=== PATIENT | male | born 1985 | race Two or more races ===

== ENCOUNTER 2018-02-02 15:57 | Emergency (ER) | payer MEDICAID ==
[~2018-02-02] VITALS: Ht 185.4 cm; Wt 79.1 kg
[~2018-02-02 15:57] MED LIST: ACET1TAB12 PO; ALPR-385 PO; ARIP5TAB4 PO; EMTR1TAB6 PO; FLUV50TA3 PO; HYDR-565 PO; RALT400T PO
[2018-02-02 17:55] LABS: BASOPHILS % (AUTO) 0.3 % (0-1); EOSINOPHILS # (AUTO) 0.1 X10'3 (0-0.9); EOSINOPHILS % (AUTO) 1.5 % (0-6); HEMATOCRIT 40.6 % (42.0-52.0); LYMPHOCYTES # (AUTO) 2.4 X10'3 (1.1-4.8); LYMPHOCYTES % (AUTO) 36.6 % (21-51); MEAN CORPUSCULAR HEMOGLOBIN 33.1 PG (27.0-31.0); MEAN CORPUSCULAR HGB CONC 34.6 % (33.0-36.5); MEAN CORPUSCULAR VOLUME 95.8 FL (78-98); MONOCYTES # (AUTO) 0.7 X10'3 (0-0.9); MONOCYTES % (AUTO) 10.2 % (2-12); NEUTROPHILS # (AUTO) 3.4 X10'3 (1.8-7.7); NEUTROPHILS % (AUTO) 51.4 % (42-75); PLATELET COUNT 258 X10'3 (140-440); RED BLOOD COUNT 4.24 X10'6 (4.70-6.10); RED CELL DISTRIBUTION WIDTH 13.2 % (11.5-14.5); WHITE BLOOD COUNT 6.6 X10'3 (4.5-11.0)
[2018-02-02 18:12] LABS: ALANINE AMINOTRANSFERASE 63 U/L (12-78); ALBUMIN 3.7 G/DL (3.4-5.0); ALBUMIN/GLOBULIN RATIO 0.9 (1.1-1.5); ALKALINE PHOSPHATASE 65 IU/L (46-116); ANION GAP 7 (8-16); ASPARTATE AMINO TRANSFERASE 30 U/L (10-37); BILIRUBIN,TOTAL 0.9 MG/DL (0.1-1.0); BLOOD UREA NITROGEN 16 MG/DL (7-18); BUN/CREATININE RATIO 18.6 (5.4-32.0); CHLORIDE 102 MMOL/L (99-107); CREATININE 0.86 MG/DL (0.60-1.10); ETHANOL < 0.010 GM/DL (0.0-0.010); GLUCOSE 78 MG/DL (70-104); POTASSIUM 3.5 MMOL/L (3.5-5.1); SODIUM 139 MMOL/L (135-145); TOTAL CARBON DIOXIDE 29.9 MMOL/L (24-32); TOTAL PROTEIN 7.6 G/DL (6.4-8.2); eGFR > 90 ML/MIN
[2018-02-02 18:35] LABS: URINE AMPHETAMINE SCREEN POSITIVE (Neg); URINE BARBITUATE SCREEN NEGATIVE (Neg); URINE BENZODIAZEPINES SCREEN NEGATIVE (Neg); URINE CANNABINOID SCREEN POSITIVE (Neg); URINE COCAINE SCREEN NEGATIVE (Neg); URINE METHADONE SCREEN NEGATIVE (Neg); URINE OPIATE SCREEN POSITIVE (Neg); URINE PHENCYCLIDINE SCREEN NEGATIVE (Neg)
[2018-02-02] MEDS ORDERED: ZOLP6.252 PO (22:29)
[2018-02-02] MEDS ORDERED: TRAZ-146 PO (22:29)
[2018-02-02] MEDS ORDERED: GABA100C PO (22:30)
[2018-02-03 06:09] VITALS: BP 112/61
== END 2018-02-03 09:23 ==
LOC: ER 15:58
DX: F32.9 Major depressive disorder, single episode, unspecified (principal); F41.9 Anxiety disorder, unspecified; F15.10 Other stimulant abuse, uncomplicated; F12.90 Cannabis use, unspecified, uncomplicated; G89.29 Other chronic pain; Z88.1 Allergy status to other antibiotic agents; Z88.6 Allergy status to analgesic agent; Z79.899 Other long term (current) drug therapy
CPT/HCPCS: 36415; 80053; 80305; 80320; 85025; 99285

== ENCOUNTER 2018-02-09 07:00 | Emergency (ER) | payer MEDICAID ==
[~2018-02-09] VITALS: Ht 653.8 cm; Wt 78.0 kg
[~2018-02-09 07:00] MED LIST changes: -ACET1TAB12 PO; -EMTR1TAB6 PO; +GABA100C PO; -HYDR-565 PO; -RALT400T PO; +TRAZ-146 PO; +ZOLP6.252 PO
[2018-02-09 07:13] VITALS: BP 104/66
[2018-02-09] MEDS ORDERED: ONDA8TAB9 PO (09:06)
[2018-02-09] MEDS ORDERED: HYDR-3965 PO (09:09)
== END 2018-02-09 09:24 | disposition home or self-care (01) ==
LOC: ER 07:00
DX: S00.33XA Contusion of nose, initial encounter (principal); J34.2 Deviated nasal septum; G89.29 Other chronic pain; F31.9 Bipolar disorder, unspecified; F12.90 Cannabis use, unspecified, uncomplicated; R11.10 Vomiting, unspecified; F15.90 Other stimulant use, unspecified, uncomplicated; Z88.8 Allergy status to other drugs, medicaments and biological substances; Z79.2 Long term (current) use of antibiotics; Z79.899 Other long term (current) drug therapy; Z88.5 Allergy status to narcotic agent; Z21 Asymptomatic human immunodeficiency virus [HIV] infection status; Y04.8XXA Assault by other bodily force, initial encounter; Y93.89 Activity, other specified; Y92.89 Other specified places as the place of occurrence of the external cause; Y99.8 Other external cause status
CPT/HCPCS: 70450; 70486; 99284

== ENCOUNTER 2018-04-02 01:10 | Emergency (ER) | payer MEDICAID ==
[~2018-04-02] VITALS: Ht 185.4 cm; Wt 63.9 kg
[~2018-04-02 01:10] MED LIST changes: +ONDA8TAB9 PO; -TRAZ-146 PO; +TRAZ-219 PO
[2018-04-02] MEDS ORDERED: ARIP5TAB49 (03:32)
[2018-04-02 04:02] LABS: BASOPHILS % (AUTO) 0.3 % (0-1); EOSINOPHILS # (AUTO) 0.1 X10'3 (0-0.9); EOSINOPHILS % (AUTO) 1.6 % (0-6); HEMATOCRIT 37.5 % (42.0-52.0); HEMOGLOBIN 12.9 g/dl (14.0-17.9); LYMPHOCYTES % (AUTO) 21.6 % (21-51); MEAN CORPUSCULAR HGB CONC 34.3 % (33.0-36.5); MEAN CORPUSCULAR VOLUME 93.4 FL (78-98); MEAN PLATELET VOLUME 7.1 FL (7.4-10.4); MONOCYTES # (AUTO) 0.6 X10'3 (0-0.9); MONOCYTES % (AUTO) 6.7 % (2-12); NEUTROPHILS # (AUTO) 6.5 X10'3 (1.8-7.7); NEUTROPHILS % (AUTO) 69.8 % (42-75); PLATELET COUNT 301 X10'3 (140-440); RED BLOOD COUNT 4.01 X10'6 (4.70-6.10); RED CELL DISTRIBUTION WIDTH 13.1 % (11.5-14.5); WHITE BLOOD COUNT 9.4 X10'3 (4.5-11.0)
[2018-04-02 04:22] LABS: ALANINE AMINOTRANSFERASE 27 U/L (12-78); ALBUMIN 3.4 G/DL (3.4-5.0); ALBUMIN/GLOBULIN RATIO 0.9 (1.1-1.5); ALKALINE PHOSPHATASE 74 IU/L (46-116); ANION GAP 8 (8-16); ASPARTATE AMINO TRANSFERASE 22 U/L (10-37); BILIRUBIN,TOTAL 0.7 MG/DL (0.1-1.0); BLOOD UREA NITROGEN 20 MG/DL (7-18); BUN/CREATININE RATIO 24.1 (5.4-32.0); CALCIUM 8.8 MG/DL (8.5-10.1); CHLORIDE 102 MMOL/L (99-107); CREATININE 0.83 MG/DL (0.60-1.10); GLUCOSE 97 MG/DL (70-104); POTASSIUM 4.1 MMOL/L (3.5-5.1); SODIUM 137 MMOL/L (135-145); TOTAL CARBON DIOXIDE 27.5 MMOL/L (24-32); TOTAL PROTEIN 7.3 G/DL (6.4-8.2); eGFR > 90 ML/MIN
[2018-04-02 04:34] LABS: ETHANOL < 0.010 GM/DL (0.0-0.010)
[2018-04-02 04:35] LABS: ACETAMINOPHEN < 2.0 UG/ML (10-30)
[2018-04-02 05:32] LABS: CLARITY,URINE CLEAR (Clear); COLOR,URINE YELLOW (Yellow); GLUCOSE, URINE NEGATIVE (Neg); KETONES,URINE NEGATIVE (Neg); LEUKOCYTE ESTERASE ,URINE NEGATIVE (Neg); NITRITES, URINE NEGATIVE (Neg); OCCULT BLOOD,URINE NEGATIVE (Neg); PROTEIN,URINE NEGATIVE (Neg)
[2018-04-02 05:33] LABS: UA COLLECTION TYPE NON-SPECIFIED
[2018-04-02 05:34] LABS: URINE AMPHETAMINE SCREEN POSITIVE (Neg); URINE BARBITUATE SCREEN NEGATIVE (Neg); URINE BENZODIAZEPINES SCREEN NEGATIVE (Neg); URINE CANNABINOID SCREEN POSITIVE (Neg); URINE COCAINE SCREEN NEGATIVE (Neg); URINE METHADONE SCREEN NEGATIVE (Neg); URINE OPIATE SCREEN POSITIVE (Neg); URINE PHENCYCLIDINE SCREEN NEGATIVE (Neg)
[2018-04-02] MEDS ORDERED: GABA-532 PO (09:19)
[2018-04-02] MEDS ORDERED: EMTR1TAB6 PO (09:19)
[2018-04-02] MEDS ORDERED: BUPR1FIL3 PO (09:19)
[2018-04-02] MEDS ORDERED: buprenorphine/naloxone 8mg/2mg SL tablet SL SCH (10:11)
[2018-04-02] MEDS: gabapentin 300mg capsule PO SCH ×2 (10:24→19:51)
[2018-04-02] MEDS ORDERED: EMTRICITABINE PO SCH ×2 (11:00)
[2018-04-02] MEDS ORDERED: [UNRECOGNIZED DRUG - OTHER] PO SCH ×2 (11:00)
[2018-04-02] MEDS ORDERED: ziprasidone IM 20mg inj **IM only IM PRN (13:40)
[2018-04-02] MEDS: buprenorphine/naloxone 8mg/2mg SL tablet SL SCH (19:51)
[2018-04-02] MEDS: fluvoxamine 25 MG tablet PO SCH (20:57)
[2018-04-02] MEDS: traZODone 50mg tablet PO SCH (20:57)
[2018-04-03] MEDS: gabapentin 300mg capsule PO SCH ×2 (07:30→20:07)
[2018-04-03] MEDS: buprenorphine/naloxone 8mg/2mg SL tablet SL SCH ×2 (07:31→10:03)
[2018-04-03] MEDS ORDERED: buprenorphine/naloxone 2-0.5mg sublingual tablet SL SCH (09:00)
[2018-04-03] MEDS: fluvoxamine 25 MG tablet PO SCH (20:39)
[2018-04-03] MEDS: traZODone 50mg tablet PO SCH (20:39)
[2018-04-04 05:30] VITALS: BP 115/59
[2018-04-04] MEDS: gabapentin 300mg capsule PO SCH (08:54)
[2018-04-04] MEDS: buprenorphine/naloxone 8mg/2mg SL tablet SL SCH ×2 (08:54→10:47)
== END 2018-04-04 11:52 | disposition home or self-care (01) ==
LOC: ER 01:10
DX: S02.5XXA Fracture of tooth (traumatic), initial encounter for closed fracture (principal); S01.511A Laceration without foreign body of lip, initial encounter; R45.851 Suicidal ideations; G89.29 Other chronic pain; F41.9 Anxiety disorder, unspecified; F31.9 Bipolar disorder, unspecified; F12.90 Cannabis use, unspecified, uncomplicated; F15.90 Other stimulant use, unspecified, uncomplicated; F19.90 Other psychoactive substance use, unspecified, uncomplicated; Z59.0 Homelessness; Z88.1 Allergy status to other antibiotic agents; Z88.5 Allergy status to narcotic agent; Z88.6 Allergy status to analgesic agent; Z79.899 Other long term (current) drug therapy; Y09 Assault by unspecified means; Y93.9 Activity, unspecified; Y92.89 Other specified places as the place of occurrence of the external cause; Y99.8 Other external cause status
CPT/HCPCS: 36415; 80053; 80305; 80320; 80329; 81003; 84443; 85025; 99285

== ENCOUNTER 2018-04-09 10:29 | Emergency (ER) | payer MEDICAID ==
[~2018-04-09] VITALS: Ht 185.4 cm; Wt 90.0 kg
[~2018-04-09 10:29] MED LIST changes: -ALPR-385 PO; -ARIP5TAB4 PO; +BUPR1FIL3 PO; +EMTR1TAB6 PO; +GABA-532 PO; -GABA100C PO; -ONDA8TAB9 PO; -ZOLP6.252 PO
[2018-04-09] MEDS ORDERED: acetaminophen 325mg tablet PO ONE (11:45)
[2018-04-09] MEDS ORDERED: clindamycin 150mg capsule PO ONE (11:45)
[2018-04-09] MEDS ORDERED: BUPIVAcaine/PF 7.5 mg/ml (0.75%) 30ml vial IJ ONE (11:45)
[2018-04-09] MEDS ORDERED: CLIN300C70 PO (12:32)
[2018-04-09] MEDS ORDERED: MORP15TA PO (12:32)
[2018-04-09 12:44] VITALS: BP 109/6
== END 2018-04-09 12:45 | disposition home or self-care (01) ==
LOC: ER 10:29
DX: K02.9 Dental caries, unspecified (principal); G89.29 Other chronic pain; F12.90 Cannabis use, unspecified, uncomplicated; F15.90 Other stimulant use, unspecified, uncomplicated; Z88.6 Allergy status to analgesic agent; Z88.1 Allergy status to other antibiotic agents; Z79.899 Other long term (current) drug therapy; Z59.0 Homelessness
CPT/HCPCS: 64400; 99284; J3490

== ENCOUNTER 2018-04-11 20:27 | Emergency (ER) | payer MEDICAID ==
[~2018-04-11] VITALS: Ht 185.4 cm; Wt 90.9 kg
[~2018-04-11 20:27] MED LIST changes: +CLIN300C70 PO; +MORP15TA PO
[2018-04-11 20:43] VITALS: BP 133/64
== END 2018-04-11 21:07 | disposition left against medical advice (07) ==
LOC: ER 20:28
DX: K08.89 Other specified disorders of teeth and supporting structures (principal); Z53.21 Procedure and treatment not carried out due to patient leaving prior to being seen by health care provider

== ENCOUNTER 2018-04-22 16:35 | Emergency (ER) | payer MEDICAID ==
[~2018-04-22] VITALS: Ht 185.4 cm; Wt 81.9 kg
[~2018-04-22 16:35] MED LIST changes: -CLIN300C70 PO; -MORP15TA PO
[2018-04-22 17:56] LABS: BASOPHILS % (AUTO) 0.2 % (0-1); EOSINOPHILS # (AUTO) 0.1 X10'3 (0-0.9); EOSINOPHILS % (AUTO) 0.7 % (0-6); HEMATOCRIT 36.7 % (42.0-52.0); HEMOGLOBIN 12.9 g/dl (14.0-17.9); LYMPHOCYTES # (AUTO) 2.1 X10'3 (1.1-4.8); LYMPHOCYTES % (AUTO) 23.7 % (21-51); MEAN CORPUSCULAR HEMOGLOBIN 32.6 PG (27.0-31.0); MEAN CORPUSCULAR HGB CONC 35.1 % (33.0-36.5); MEAN PLATELET VOLUME 7.3 FL (7.4-10.4); MONOCYTES # (AUTO) 0.7 X10'3 (0-0.9); MONOCYTES % (AUTO) 7.5 % (2-12); NEUTROPHILS # (AUTO) 6.1 X10'3 (1.8-7.7); NEUTROPHILS % (AUTO) 67.9 % (42-75); PLATELET COUNT 267 X10'3 (140-440); RED BLOOD COUNT 3.95 X10'6 (4.70-6.10)
[2018-04-22 18:06] LABS: ALANINE AMINOTRANSFERASE 20 U/L (12-78); ALBUMIN 3.1 G/DL (3.4-5.0); ALBUMIN/GLOBULIN RATIO 0.8 (1.1-1.5); ALKALINE PHOSPHATASE 83 IU/L (46-116); ANION GAP 6 (8-16); ASPARTATE AMINO TRANSFERASE 13 U/L (10-37); BILIRUBIN,TOTAL 0.4 MG/DL (0.1-1.0); BLOOD UREA NITROGEN 10 MG/DL (7-18); BUN/CREATININE RATIO 13.2 (5.4-32.0); CALCIUM 8.7 MG/DL (8.5-10.1); CHLORIDE 104 MMOL/L (99-107); CREATININE 0.76 MG/DL (0.60-1.10); GLUCOSE 71 MG/DL (70-104); POTASSIUM 3.6 MMOL/L (3.5-5.1); SODIUM 141 MMOL/L (135-145); TOTAL CARBON DIOXIDE 30.6 MMOL/L (24-32); TOTAL PROTEIN 6.9 G/DL (6.4-8.2); eGFR > 90 ML/MIN
[2018-04-22 18:21] LABS: ETHANOL < 0.010 GM/DL (0.0-0.010)
[2018-04-22 18:42] LABS: URINE AMPHETAMINE SCREEN POSITIVE (Neg); URINE BARBITUATE SCREEN NEGATIVE (Neg); URINE BENZODIAZEPINES SCREEN NEGATIVE (Neg); URINE CANNABINOID SCREEN POSITIVE (Neg); URINE COCAINE SCREEN NEGATIVE (Neg); URINE METHADONE SCREEN NEGATIVE (Neg); URINE OPIATE SCREEN POSITIVE (Neg); URINE PHENCYCLIDINE SCREEN NEGATIVE (Neg)
[2018-04-22] MEDS: buprenorphine/naloxone 2-0.5mg sublingual tablet SL SCH (20:05)
[2018-04-22] MEDS: traZODone 50mg tablet PO SCH (20:06)
[2018-04-22] MEDS: fluvoxamine 25 MG tablet PO SCH (20:06)
[2018-04-23] MEDS: OLANZapine 2.5MG tablet PO SCH ×2 (08:08→17:00)
[2018-04-23] MEDS: emtricitabine/tenofovir 200mg/300mg tablet PO SCH (08:09)
[2018-04-23] MEDS: buprenorphine/naloxone 2-0.5mg sublingual tablet SL SCH ×2 (08:16→21:02)
[2018-04-23] MEDS: fluvoxamine 25 MG tablet PO SCH (20:53)
[2018-04-23] MEDS: traZODone 50mg tablet PO SCH (20:53)
[2018-04-24] MEDS: OLANZapine 2.5MG tablet PO SCH ×4 (08:36→23:31)
[2018-04-24] MEDS: emtricitabine/tenofovir 200mg/300mg tablet PO SCH (08:38)
[2018-04-24] MEDS: buprenorphine/naloxone 2-0.5mg sublingual tablet SL SCH ×2 (08:39→20:41)
[2018-04-24 15:14] LABS: CLARITY,URINE CLEAR (Clear); COLOR,URINE YELLOW (Yellow); GLUCOSE, URINE NEGATIVE (Neg); KETONES,URINE NEGATIVE (Neg); LEUKOCYTE ESTERASE ,URINE NEGATIVE (Neg); NITRITES, URINE NEGATIVE (Neg); OCCULT BLOOD,URINE NEGATIVE (Neg); PH,URINE 6.5 (4.8-8.0); PROTEIN,URINE NEGATIVE (Neg); UROBILINOGEN,URINE 0.2 E.U/dL (0.2-1.0)
[2018-04-24 15:16] LABS: UA COLLECTION TYPE CLN CATCH MIDSTREAM
[2018-04-24] MEDS: traZODone 50mg tablet PO SCH (20:35)
[2018-04-24] MEDS: fluvoxamine 25 MG tablet PO SCH (20:36)
[2018-04-25] MEDS: OLANZapine 2.5MG tablet PO SCH ×3 (08:42→23:40)
[2018-04-25] MEDS: emtricitabine/tenofovir 200mg/300mg tablet PO SCH (08:42)
[2018-04-25] MEDS: buprenorphine/naloxone 2-0.5mg sublingual tablet SL SCH ×2 (08:42→20:46)
[2018-04-25] MEDS: traZODone 50mg tablet PO SCH (20:45)
[2018-04-25] MEDS: fluvoxamine 25 MG tablet PO SCH (20:46)
[2018-04-26] MEDS: OLANZapine 2.5MG tablet PO SCH ×3 (08:32→23:54)
[2018-04-26] MEDS: buprenorphine/naloxone 2-0.5mg sublingual tablet SL SCH ×2 (08:33→20:32)
[2018-04-26] MEDS ORDERED: emtricitabine/tenofovir 200mg/300mg tablet PO SCH (08:43)
[2018-04-26] MEDS: emtricitabine/tenofovir 200mg/300mg tablet PO SCH (09:27)
[2018-04-26] MEDS ORDERED: ondansetron 4mg rapidly disintigrating tab PO ONE (18:40)
[2018-04-26] MEDS: fluvoxamine 25 MG tablet PO SCH (20:31)
[2018-04-26] MEDS: traZODone 50mg tablet PO SCH (20:32)
[2018-04-27] MEDS ORDERED: gabapentin 400mg capsule PO SCH (08:00)
[2018-04-27] MEDS: buprenorphine/naloxone 2-0.5mg sublingual tablet SL SCH (08:14)
[2018-04-27] MEDS: OLANZapine 2.5MG tablet PO SCH ×2 (08:14→15:51)
[2018-04-27] MEDS: emtricitabine/tenofovir 200mg/300mg tablet PO SCH (08:15)
[2018-04-27 19:34] VITALS: BP 106/54
== END 2018-04-27 19:37 | disposition home or self-care (01) ==
LOC: ER 16:37
DX: F32.9 Major depressive disorder, single episode, unspecified (principal); F11.20 Opioid dependence, uncomplicated; G89.29 Other chronic pain; F41.9 Anxiety disorder, unspecified; F12.10 Cannabis abuse, uncomplicated; F15.10 Other stimulant abuse, uncomplicated; Z59.0 Homelessness; Z88.1 Allergy status to other antibiotic agents; Z88.5 Allergy status to narcotic agent
CPT/HCPCS: 36415; 80053; 80305; 80320; 81003; 84443; 85025; 93005; 99285

== ENCOUNTER 2018-05-20 08:48 | Emergency (ER) | payer MEDICAID ==
[~2018-05-20] VITALS: Ht 185.4 cm; Wt 92.5 kg
[~2018-05-20 08:48] MED LIST changes: +ALPR0.5T9 PO; -BUPR1FIL3 PO; +BUPR1TAB52 SL; +COL100C PO; +FLUV100T3 PO; -FLUV50TA3 PO; -GABA-532 PO; +GABA600T2 PO; +GABA800T2 PO; +NICO2GUM29 BC; -TRAZ-219 PO; +TRAZ150T78 PO
[2018-05-20 09:00] VITALS: BP 126/86
[2018-05-20] MEDS ORDERED: DICL50TA8 PO (09:18)
[2018-05-20] MEDS ORDERED: CLIN150C8 PO (09:18)
== END 2018-05-20 09:29 | disposition home or self-care (01) ==
LOC: ER 08:49
DX: K02.9 Dental caries, unspecified (principal); G89.29 Other chronic pain; F12.90 Cannabis use, unspecified, uncomplicated; F15.90 Other stimulant use, unspecified, uncomplicated; F19.90 Other psychoactive substance use, unspecified, uncomplicated; Z59.0 Homelessness; Z88.5 Allergy status to narcotic agent; Z88.1 Allergy status to other antibiotic agents; Z79.2 Long term (current) use of antibiotics; Z79.899 Other long term (current) drug therapy
CPT/HCPCS: 99284

== ENCOUNTER 2018-05-21 20:31 | Emergency (ER) | payer MEDICAID ==
[~2018-05-21] VITALS: Ht 177.8 cm; Wt 80.0 kg
[~2018-05-21 20:31] MED LIST changes: +CLIN150C8 PO; +DICL50TA8 PO
[2018-05-21 21:38] LABS: BASOPHILS % (AUTO) 0.5 % (0-1); EOSINOPHILS # (AUTO) 0.2 X10'3 (0-0.9); EOSINOPHILS % (AUTO) 3.9 % (0-6); HEMATOCRIT 39.1 % (42.0-52.0); HEMOGLOBIN 13.1 g/dl (14.0-17.9); LYMPHOCYTES # (AUTO) 2.6 X10'3 (1.1-4.8); MEAN CORPUSCULAR HEMOGLOBIN 31.9 PG (27.0-31.0); MEAN CORPUSCULAR HGB CONC 33.6 % (33.0-36.5); MEAN CORPUSCULAR VOLUME 94.9 FL (78-98); MEAN PLATELET VOLUME 7.4 FL (7.4-10.4); MONOCYTES # (AUTO) 0.6 X10'3 (0-0.9); MONOCYTES % (AUTO) 10.9 % (2-12); NEUTROPHILS # (AUTO) 2.3 X10'3 (1.8-7.7); NEUTROPHILS % (AUTO) 39.7 % (42-75); PLATELET COUNT 255 X10'3 (140-440); RED BLOOD COUNT 4.12 X10'6 (4.70-6.10); RED CELL DISTRIBUTION WIDTH 12.9 % (11.5-14.5); WHITE BLOOD COUNT 5.7 X10'3 (4.5-11.0)
[2018-05-21 21:59] LABS: ALANINE AMINOTRANSFERASE 114 U/L (12-78); ALBUMIN 3.4 G/DL (3.4-5.0); ALBUMIN/GLOBULIN RATIO 0.9 (1.1-1.5); ALKALINE PHOSPHATASE 67 IU/L (46-116); ANION GAP 5 (8-16); ASPARTATE AMINO TRANSFERASE 50 U/L (10-37); BILIRUBIN,TOTAL 0.3 MG/DL (0.1-1.0); BLOOD UREA NITROGEN 18 MG/DL (7-18); BUN/CREATININE RATIO 22.5 (5.4-32.0); CALCIUM 8.8 MG/DL (8.5-10.1); CHLORIDE 104 MMOL/L (99-107); GLUCOSE 88 MG/DL (70-104); SODIUM 139 MMOL/L (135-145); TOTAL CARBON DIOXIDE 29.8 MMOL/L (24-32); TOTAL PROTEIN 7.1 G/DL (6.4-8.2); eGFR > 90 ML/MIN
[2018-05-21 22:01] LABS: ETHANOL < 0.010 GM/DL (0.0-0.010)
[2018-05-21 22:05] LABS: ACETAMINOPHEN < 2.0 UG/ML (10-30)
[2018-05-21 22:56] LABS: CLARITY,URINE CLEAR (Clear); COLOR,URINE YELLOW (Yellow); GLUCOSE, URINE NEGATIVE (Neg); KETONES,URINE NEGATIVE (Neg); LEUKOCYTE ESTERASE ,URINE NEGATIVE (Neg); NITRITES, URINE NEGATIVE (Neg); OCCULT BLOOD,URINE NEGATIVE (Neg); PROTEIN,URINE NEGATIVE (Neg); UROBILINOGEN,URINE 0.2 E.U/dL (0.2-1.0)
[2018-05-21 22:58] LABS: UA COLLECTION TYPE VOIDED
[2018-05-21 23:09] LABS: URINE AMPHETAMINE SCREEN NEGATIVE (Neg); URINE BARBITUATE SCREEN NEGATIVE (Neg); URINE BENZODIAZEPINES SCREEN NEGATIVE (Neg); URINE CANNABINOID SCREEN NEGATIVE (Neg); URINE COCAINE SCREEN NEGATIVE (Neg); URINE METHADONE SCREEN NEGATIVE (Neg); URINE OPIATE SCREEN NEGATIVE (Neg); URINE PHENCYCLIDINE SCREEN NEGATIVE (Neg)
[2018-05-22] MEDS ORDERED: NALOXONE (01:19)
[2018-05-22] MEDS ORDERED: LORAZEPAM 0.5 MG (01:19)
[2018-05-22] MEDS ORDERED: BUPRENORPHINE (01:19)
[2018-05-22] MEDS ORDERED: TRAZODONE 100 MG (01:19)
[2018-05-22] MEDS ORDERED: FLUVOXAMINE MALEATE 100 MG (01:20)
[2018-05-22] MEDS ORDERED: GABAPENTIN 600 MG (01:20)
[2018-05-22] MEDS ORDERED: GABAPENTIN 800 MG (01:20)
[2018-05-22 01:30] VITALS: BP 119/65
[2018-05-22] MEDS ORDERED: LORazepam 1 MG tablet PO PRN (08:10)
[2018-05-22] MEDS ORDERED: ALPR-624 PO (08:41)
[2018-05-22] MEDS ORDERED: FLUV100C2 PO (08:45)
[2018-05-22] MEDS: gabapentin 400mg capsule PO SCH (10:37)
[2018-05-22] MEDS: buprenorphine/naloxone 8mg/2mg SL tablet SL SCH (10:38)
[2018-05-22] MEDS: ALPRAZolam 0.5mg tablet PO PRN (10:38)
[2018-05-22] MEDS: fluvoxamine 25 MG tablet PO SCH (10:38)
[2018-05-22] MEDS: emtricitabine/tenofovir 200mg/300mg tablet PO SCH (10:39)
[2018-05-22] MEDS ORDERED: traZODone 50mg tablet PO SCH (21:00)
[2018-05-22] MEDS ORDERED: gabapentin 300mg capsule PO SCH (21:00)
== END 2018-05-22 11:36 | disposition home or self-care (01) ==
LOC: ER 20:31
DX: R45.851 Suicidal ideations (principal); F32.9 Major depressive disorder, single episode, unspecified; F41.9 Anxiety disorder, unspecified; Z59.0 Homelessness; F12.90 Cannabis use, unspecified, uncomplicated; F15.90 Other stimulant use, unspecified, uncomplicated; Z88.6 Allergy status to analgesic agent; Z88.1 Allergy status to other antibiotic agents; Z79.899 Other long term (current) drug therapy
CPT/HCPCS: 36415; 80053; 80305; 80320; 80329; 81003; 84443; 85025; 99285

== ENCOUNTER 2018-05-30 14:02 | Emergency (ER) | payer MEDICAID ==
[~2018-05-30] VITALS: Ht 185.4 cm; Wt 93.0 kg
[~2018-05-30 14:02] MED LIST changes: +ALPR-624 PO; -ALPR0.5T9 PO; -CLIN150C8 PO; -COL100C PO; -DICL50TA8 PO; +FLUV100C2 PO; -FLUV100T3 PO; -TRAZ150T78 PO
[2018-05-30 14:59] LABS: BASOPHILS % (AUTO) 0.4 % (0-1); EOSINOPHILS % (AUTO) 0.3 % (0-6); HEMATOCRIT 44.5 % (42.0-52.0); HEMOGLOBIN 14.9 g/dl (14.0-17.9); LYMPHOCYTES # (AUTO) 1.3 X10'3 (1.1-4.8); LYMPHOCYTES % (AUTO) 17.3 % (21-51); MEAN CORPUSCULAR HEMOGLOBIN 31.9 PG (27.0-31.0); MEAN CORPUSCULAR HGB CONC 33.4 % (33.0-36.5); MEAN CORPUSCULAR VOLUME 95.5 FL (78-98); MONOCYTES # (AUTO) 0.3 X10'3 (0-0.9); MONOCYTES % (AUTO) 4.7 % (2-12); NEUTROPHILS # (AUTO) 5.6 X10'3 (1.8-7.7); NEUTROPHILS % (AUTO) 77.3 % (42-75); PLATELET COUNT 262 X10'3 (140-440); RED BLOOD COUNT 4.66 X10'6 (4.70-6.10); RED CELL DISTRIBUTION WIDTH 12.9 % (11.5-14.5); WHITE BLOOD COUNT 7.3 X10'3 (4.5-11.0)
[2018-05-30 15:14] LABS: ALANINE AMINOTRANSFERASE 207 U/L (12-78); ALBUMIN 3.7 G/DL (3.4-5.0); ALBUMIN/GLOBULIN RATIO 0.9 (1.1-1.5); ALKALINE PHOSPHATASE 74 IU/L (46-116); ANION GAP 6 (8-16); ASPARTATE AMINO TRANSFERASE 85 U/L (10-37); BILIRUBIN,TOTAL 0.6 MG/DL (0.1-1.0); BLOOD UREA NITROGEN 13 MG/DL (7-18); BUN/CREATININE RATIO 17.6 (5.4-32.0); CHLORIDE 105 MMOL/L (99-107); CREATININE 0.74 MG/DL (0.60-1.10); ETHANOL < 0.010 GM/DL (0.0-0.010); GLUCOSE 103 MG/DL (70-104); POTASSIUM 4.1 MMOL/L (3.5-5.1); SODIUM 139 MMOL/L (135-145); TOTAL CARBON DIOXIDE 27.7 MMOL/L (24-32); TOTAL PROTEIN 7.8 G/DL (6.4-8.2); eGFR > 90 ML/MIN
[2018-05-30 15:23] LABS: URINE AMPHETAMINE SCREEN NEGATIVE (Neg); URINE BARBITUATE SCREEN NEGATIVE (Neg); URINE BENZODIAZEPINES SCREEN NEGATIVE (Neg); URINE CANNABINOID SCREEN POSITIVE (Neg); URINE COCAINE SCREEN NEGATIVE (Neg); URINE METHADONE SCREEN NEGATIVE (Neg); URINE OPIATE SCREEN NEGATIVE (Neg); URINE PHENCYCLIDINE SCREEN NEGATIVE (Neg)
[2018-05-30] MEDS ORDERED: gabapentin 300mg capsule PO ONE (16:55)
[2018-05-31 00:11] VITALS: BP 108/67
== END 2018-05-31 00:16 | disposition home or self-care (01) ==
LOC: ER 14:02
DX: R45.851 Suicidal ideations (principal); R74.0 Nonspecific elevation of levels of transaminase and lactic acid dehydrogenase [LDH]; G89.29 Other chronic pain; F41.9 Anxiety disorder, unspecified; F31.9 Bipolar disorder, unspecified; F12.90 Cannabis use, unspecified, uncomplicated; F15.90 Other stimulant use, unspecified, uncomplicated; Z59.0 Homelessness; Z79.899 Other long term (current) drug therapy; Z88.5 Allergy status to narcotic agent; Z88.1 Allergy status to other antibiotic agents; Z88.6 Allergy status to analgesic agent
CPT/HCPCS: 36415; 80053; 80305; 80320; 85025; 99283; 99284

== ENCOUNTER 2018-05-31 01:21 | Emergency (ER) | payer MEDICAID ==
[~2018-05-31] VITALS: Ht 185.4 cm; Wt 84.0 kg
[2018-05-31 01:26] VITALS: BP 128/68
== END 2018-05-31 01:50 | disposition left against medical advice (07) ==
LOC: ER 01:21
DX: R45.851 Suicidal ideations (principal); F41.9 Anxiety disorder, unspecified; F31.9 Bipolar disorder, unspecified; F12.90 Cannabis use, unspecified, uncomplicated; F15.90 Other stimulant use, unspecified, uncomplicated; G89.29 Other chronic pain; Z59.0 Homelessness; Z88.5 Allergy status to narcotic agent; Z88.6 Allergy status to analgesic agent; Z88.1 Allergy status to other antibiotic agents; Z79.899 Other long term (current) drug therapy
CPT/HCPCS: 99284

== ENCOUNTER 2019-01-30 05:56 | Emergency (ER) | payer MEDICAID ==
[~2019-01-30] VITALS: Ht 185.4 cm; Wt 89.5 kg
[~2019-01-30 05:56] MED LIST changes: +GABA600T13 PO; -GABA600T2 PO; +GABA800T11 PO; -GABA800T2 PO
[2019-01-30 06:06] VITALS: BP 125/77
[2019-01-30] MEDS ORDERED: aripiprazole 5mg tablet PO ONE (06:40)
[2019-01-30] MEDS ORDERED: ARIP10TA9 PO (06:41)
[2019-01-30] MEDS ORDERED: GABA-532 PO (06:41)
== END 2019-01-30 07:18 | disposition home or self-care (01) ==
LOC: ER 05:57
DX: S50.311A Abrasion of right elbow, initial encounter (principal); R45.1 Restlessness and agitation; F29 Unspecified psychosis not due to a substance or known physiological condition; F41.9 Anxiety disorder, unspecified; F31.9 Bipolar disorder, unspecified; F19.20 Other psychoactive substance dependence, uncomplicated; G89.29 Other chronic pain; F12.90 Cannabis use, unspecified, uncomplicated; F15.90 Other stimulant use, unspecified, uncomplicated; F11.90 Opioid use, unspecified, uncomplicated; Z76.0 Encounter for issue of repeat prescription; Z59.0 Homelessness; Z88.5 Allergy status to narcotic agent; Z88.6 Allergy status to analgesic agent; Z88.1 Allergy status to other antibiotic agents; Z79.899 Other long term (current) drug therapy; X58.XXXA Exposure to other specified factors, initial encounter; Y93.89 Activity, other specified; Y92.89 Other specified places as the place of occurrence of the external cause; Y99.8 Other external cause status
CPT/HCPCS: 99283

== ENCOUNTER 2019-03-29 14:32 | Emergency (ER) | payer MEDICAID ==
[~2019-03-29] VITALS: Ht 185.4 cm; Wt 95.0 kg
[~2019-03-29 14:32] MED LIST changes: +ARIP10TA9 PO; +GABA-532 PO
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
[2019-03-29 15:21] LABS: BASOPHILS % (AUTO) 0.3 % (0-1); EOSINOPHILS % (AUTO) 0.5 % (0-6); HEMATOCRIT 42.3 % (42.0-52.0); HEMOGLOBIN 14.4 g/dl (14.0-17.9); LYMPHOCYTES # (AUTO) 2.2 X10'3 (1.1-4.8); LYMPHOCYTES % (AUTO) 29.2 % (21-51); MEAN CORPUSCULAR HGB CONC 34.1 g/dL (33.0-36.5); MONOCYTES # (AUTO) 0.5 X10'3 (0-0.9); MONOCYTES % (AUTO) 6.7 % (2-12); NEUTROPHILS # (AUTO) 4.7 X10'3 (1.8-7.7); NEUTROPHILS % (AUTO) 63.3 % (42-75); PLATELET COUNT 318 X10'3 (140-440); RED CELL DISTRIBUTION WIDTH 13.5 % (11.5-14.5); WHITE BLOOD COUNT 7.4 X10'3 (4.5-11.0)
[2019-03-29 15:36] LABS: ALANINE AMINOTRANSFERASE 28 U/L (12-78); ALBUMIN 3.5 G/DL (3.4-5.0); ALBUMIN/GLOBULIN RATIO 0.9 (1.1-1.5); ALKALINE PHOSPHATASE 63 IU/L (46-116); ANION GAP 9 (8-16); ASPARTATE AMINO TRANSFERASE 17 U/L (10-37); BILIRUBIN,TOTAL 0.3 MG/DL (0.1-1.0); BLOOD UREA NITROGEN 8 MG/DL (7-18); BUN/CREATININE RATIO 8.7 (5.4-32.0); CALCIUM 8.5 MG/DL (8.5-10.1); CHLORIDE 107 MMOL/L (99-107); CREATININE 0.92 MG/DL (0.60-1.10); GLUCOSE 117 MG/DL (70-104); POTASSIUM 3.8 MMOL/L (3.5-5.1); SODIUM 143 MMOL/L (135-145); TOTAL PROTEIN 7.4 G/DL (6.4-8.2); eGFR > 90 ML/MIN
[2019-03-29 15:45] LABS: ETHANOL < 0.010 GM/DL (0.0-0.010)
[2019-03-29 16:02] LABS: CLARITY,URINE CLEAR (Clear); COLOR,URINE YELLOW (Yellow); GLUCOSE, URINE NEGATIVE (Neg); KETONES,URINE NEGATIVE (Neg); LEUKOCYTE ESTERASE ,URINE NEGATIVE (Neg); NITRITES, URINE NEGATIVE (Neg); OCCULT BLOOD,URINE NEGATIVE (Neg); PH,URINE 6.5 (4.8-8.0); PROTEIN,URINE NEGATIVE (Neg); UROBILINOGEN,URINE 0.2 E.U/dL (0.2-1.0)
[2019-03-29 16:03] LABS: UA COLLECTION TYPE CLN CATCH MIDSTREAM
[2019-03-29 16:13] LABS: URINE AMPHETAMINE SCREEN NEGATIVE (Neg); URINE BARBITUATE SCREEN NEGATIVE (Neg); URINE BENZODIAZEPINES SCREEN NEGATIVE (Neg); URINE CANNABINOID SCREEN POSITIVE (Neg); URINE COCAINE SCREEN NEGATIVE (Neg); URINE METHADONE SCREEN NEGATIVE (Neg); URINE OPIATE SCREEN POSITIVE (Neg); URINE PHENCYCLIDINE SCREEN NEGATIVE (Neg)
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
--- NOTE | 2019-03-29 17:03 | NUR ---
[facility] called and notified RN that pt was just released from [facility] in [place] 1 day ago and he is now here. She will notify the [facility] worker who will be seeing him.
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
[2019-03-29] MEDS ORDERED: ARIP5TAB4 PO (20:09)
[2019-03-29] MEDS ORDERED: TRAZ150T78 PO (20:09)
[2019-03-29] MEDS ORDERED: AMIT-189 PO (20:09)
[2019-03-29] MEDS ORDERED: BUPR1FIL3 SL (20:09)
[2019-03-29] MEDS ORDERED: ALPRAZolam 0.5mg tablet PO PRN (20:45)
[2019-03-29] MEDS ORDERED: traZODone 50mg tablet PO SCH (21:00)
[2019-03-29] MEDS ORDERED: fluvoxamine 25 MG tablet PO SCH (21:00)
[2019-03-29] MEDS ORDERED: amitriptyline 25mg tablet PO SCH (21:00)
--- NOTE | 2019-03-29 22:45 | NUR ---
The patient appears to be asleep
--- NOTE | 2019-03-30 00:11 | NUR ---
The patient was awake briefly to use the bathroom and is now back in bed
[2019-03-30] MEDS: ALPRAZolam 0.5mg tablet PO PRN ×2 (01:49→14:27)
--- NOTE | 2019-03-30 04:43 | NUR ---
The patient has been asleep off and on. He has been up to the restroom several times. He is polite with staff. He appears to be asleep at this time.
[2019-03-30 05:41] VITALS: BP 111/75
--- NOTE | 2019-03-30 07:00 | NUR ---
Pt awake and asking about his medications. Pt pleasant and has no complaints.
[2019-03-30] MEDS ORDERED: buprenorphine/naloxone 8MG-2MG SUBlingual film SL SCH (08:00)
[2019-03-30] MEDS ORDERED: aripiprazole 5mg tablet PO SCH (08:00)
--- NOTE | 2019-03-30 09:00 | NUR ---
Pt up for breakfast, took his am meds and is resting in bed without complaints.
--- NOTE | 2019-03-30 11:00 | NUR ---
Pt continues to rest in bed. Pt did c/o some anxiety, but was able to remain calm with 1:1 processing.
--- NOTE | 2019-03-30 11:44 | NUR ---
breaking primary rn, pt is sitting up in bed recarey palomares and oj, he was given both, no s/s of anxiety observed
--- NOTE | 2019-03-30 13:00 | NUR ---
Pt "girlfriend" at bedside visiting appropriately with the pt. Pt affect bright and no evidence of depression or anxiety.
--- NOTE | 2019-03-30 14:52 | NUR ---
Report given to Beck from [facility]. He stated he will give now to the MD and we will hear back.
--- NOTE | 2019-03-30 15:00 | NUR ---
[facility] called and stated pt has been accepted at [place] with Dr. Méndez being the accepting MD. Phone number: [phone]. They would like the pt by 1999, but as of now, [facility] does not have a tanker truck driver. According to [facility] they are working on getting a tanker truck driver. Pt did request and receive xanax 1mg for anxiety with positive results.
--- NOTE | 2019-03-30 16:32 | NUR ---
[facility] called and stated delivery motorcycle driver is on the way.
== END 2019-03-30 16:50 ==
LOC: ER 14:32
DX: F31.9 Bipolar disorder, unspecified (principal); R45.851 Suicidal ideations; G89.29 Other chronic pain; F41.9 Anxiety disorder, unspecified; F17.200 Nicotine dependence, unspecified, uncomplicated; Z59.0 Homelessness; Z88.5 Allergy status to narcotic agent; Z88.6 Allergy status to analgesic agent; Z88.1 Allergy status to other antibiotic agents; Z79.899 Other long term (current) drug therapy
CPT/HCPCS: 36415; 80053; 80305; 80320; 81003; 84443; 85025; 99285

== ENCOUNTER 2019-09-05 09:23 | Emergency (ER) | payer MEDICAID ==
[~2019-09-05] VITALS: Ht 185.4 cm; Wt 90.0 kg
[~2019-09-05 09:23] MED LIST changes: +AMIT-189 PO; -ARIP10TA9 PO; +ARIP5TAB14 PO; +BUPR1FIL3 SL; -BUPR1TAB52 SL; -EMTR1TAB6 PO; -GABA-532 PO; -GABA600T13 PO; -GABA800T11 PO; -NICO2GUM29 BC; +TRAZ150T78 PO
[2019-09-05] MEDS ORDERED: HYDROcodone/acetaminophen 5mg/325mg tablet PO ONE (11:50)
[2019-09-05 12:12] VITALS: BP 116/66
== END 2019-09-05 13:11 | disposition short-term general hospital (02) ==
LOC: ER 09:24
DX: S02.85XA Fracture of orbit, unspecified, initial encounter for closed fracture (principal); G89.29 Other chronic pain; F11.90 Opioid use, unspecified, uncomplicated; Z59.0 Homelessness; Z88.5 Allergy status to narcotic agent; Z88.6 Allergy status to analgesic agent; Z79.899 Other long term (current) drug therapy; Y04.0XXA Assault by unarmed brawl or fight, initial encounter; Y93.89 Activity, other specified; Y92.89 Other specified places as the place of occurrence of the external cause; Y99.9 Unspecified external cause status
CPT/HCPCS: 70486; 99285

== ENCOUNTER 2020-03-14 15:58 | Emergency (ER) | payer MEDICAID ==
[~2020-03-14] VITALS: Ht 185.4 cm; Wt 115.0 kg
[2020-03-14 16:07] VITALS: BP 129/82
[2020-03-14] MEDS ORDERED: CLIN300C70 PO (16:53)
== END 2020-03-14 17:03 | disposition home or self-care (01) ==
LOC: ER 15:59
DX: K04.7 Periapical abscess without sinus (principal); H57.12 Ocular pain, left eye; R51 Headache; G89.29 Other chronic pain; F41.9 Anxiety disorder, unspecified; F31.9 Bipolar disorder, unspecified; Z59.0 Homelessness; Z88.6 Allergy status to analgesic agent; Z88.1 Allergy status to other antibiotic agents; Z88.8 Allergy status to other drugs, medicaments and biological substances; Z79.2 Long term (current) use of antibiotics; Z79.899 Other long term (current) drug therapy
CPT/HCPCS: 99283

== ENCOUNTER 2020-03-31 02:26 | Emergency (ER) | payer MEDICAID ==
[~2020-03-31] VITALS: Ht 185.4 cm; Wt 100.0 kg
--- NOTE | 2020-03-31 02:50 | NUR ---
Pt is desiring to use [facility] for his transportation home. He states that he needs someone in the ER to confirm that he was seen and is discharged. The ER phone number was supplied to him along with LOS Stein's name in order to meet the patient's need.
[2020-03-31] MEDS ORDERED: CLIN150C8 PO (02:53)
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
[2020-03-31 03:04] VITALS: BP 131/94
--- NOTE | 2020-03-31 03:10 | NUR ---
Pt request orange juice so that he could take it with his subonoxe. Pt states that he can only take it with orange juice otherwise his mouth gets too filmy. This was supplied to him.
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
--- NOTE | 2020-03-31 04:05 | NUR ---
SECURITY HAD TO BE CALLED PATIENT RETURNED TO [facility] AND WANTED TO SPEAK TO ME AGAIN. HAVING ALREADY SPOKE TO PATIENT AND NOT BEING ABLE TO RESOLVE HIS CONCERNS I ADVISED REGISTRATION TO PROVIDE HIM WITH THE NUMBER FOR THE ER DIRECTOR AND TELL HIM TO CALL ON WEDNESDAY TO FILE A COMPLAINT. PT WAS ONCE AGAIN NOT SATISFIED AND BEGAN DEMANDING FOR REGISTRATION TO PROVIDE HIM WITH ALL THE NAMES AND NUMBERS OF ADMINISTRATIVE STAFF. SECURITY ARRIVED AND ESCORTED PATIENT OFF PROPERTY.
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
--- NOTE | 2020-03-31 05:15 | NUR ---
pt left on foot before [employer] arrived. They were contacted and will cancel their response. Case# [id number]
== END 2020-03-31 03:12 | disposition home or self-care (01) ==
LOC: ER 02:26
DX: K08.89 Other specified disorders of teeth and supporting structures (principal); G89.29 Other chronic pain; F41.9 Anxiety disorder, unspecified; F31.9 Bipolar disorder, unspecified; F11.90 Opioid use, unspecified, uncomplicated; Z59.0 Homelessness; Z88.5 Allergy status to narcotic agent; Z79.899 Other long term (current) drug therapy
CPT/HCPCS: 99283

== ENCOUNTER 2022-04-22 23:40 | Emergency (ER) | payer MEDICAID ==
[~2022-04-22] VITALS: Ht 185.4 cm; Wt 118.2 kg
[~2022-04-22 23:40] MED LIST changes: +CLIN150C8 PO
[2022-04-23 02:33] VITALS: BP 106/58
[2022-04-24] MEDS ORDERED: ARIP15TA3 PO (17:40)
[2022-04-24] MEDS ORDERED: ALPR-624 PO (17:40)
[2022-04-24] MEDS ORDERED: ONDA4TAB12 PO (17:40)
[2022-04-24] MEDS ORDERED: TRAZ150T78 PO (17:40)
== END 2022-04-23 02:43 | disposition home or self-care (01) ==
LOC: ER 23:42
DX: F10.20 Alcohol dependence, uncomplicated (principal); R11.2 Nausea with vomiting, unspecified; F10.239 Alcohol dependence with withdrawal, unspecified; G89.29 Other chronic pain; F41.9 Anxiety disorder, unspecified; F31.9 Bipolar disorder, unspecified; Z72.89 Other problems related to lifestyle; Z59.00 Homelessness unspecified; Z88.1 Allergy status to other antibiotic agents; Z88.8 Allergy status to other drugs, medicaments and biological substances; Z79.2 Long term (current) use of antibiotics; Z79.899 Other long term (current) drug therapy; Y90.9 Presence of alcohol in blood, level not specified
CPT/HCPCS: 99281

== ENCOUNTER 2022-04-24 13:46 | Emergency (ER) | payer MEDICAID ==
[~2022-04-24] VITALS: Ht 185.4 cm; Wt 109.1 kg
[2022-04-24 15:22] VITALS: BP 136/88
[2022-04-24] MEDS ORDERED: ALPR-624 PO (17:40)
[2022-04-24] MEDS ORDERED: TRAZ150T78 PO (17:40)
[2022-04-24] MEDS ORDERED: ONDA4TAB12 PO (17:40)
[2022-04-24] MEDS ORDERED: ARIP15TA3 PO (17:40)
== END 2022-04-24 18:02 | disposition home or self-care (01) ==
LOC: ER 13:48
DX: F10.20 Alcohol dependence, uncomplicated (principal); G89.29 Other chronic pain; F41.9 Anxiety disorder, unspecified; F31.9 Bipolar disorder, unspecified; Z72.89 Other problems related to lifestyle; Z59.00 Homelessness unspecified; Z88.1 Allergy status to other antibiotic agents; Z88.6 Allergy status to analgesic agent; Z88.8 Allergy status to other drugs, medicaments and biological substances; Z79.2 Long term (current) use of antibiotics; Z79.899 Other long term (current) drug therapy; Y90.9 Presence of alcohol in blood, level not specified
CPT/HCPCS: 99283

== ENCOUNTER 2022-05-12 19:06 | Emergency (ER) | payer MEDICAID ==
[~2022-05-12] VITALS: Ht 185.4 cm; Wt 106.8 kg
[~2022-05-12 19:06] MED LIST changes: +ARIP15TA3 PO; +ONDA4TAB12 PO
--- NOTE | 2022-05-12 20:30 | NUR ---
URINE SPECIMAN GIVEN PENDING ORDER
[2022-05-12 20:57] LABS: BASOPHILS % (AUTO) 0.5 % (0-1); EOSINOPHILS # (AUTO) 0.1 X10'3 (0-0.9); EOSINOPHILS % (AUTO) 1.6 % (0-6); HEMATOCRIT 41.6 % (42.0-52.0); HEMOGLOBIN 14.4 g/dl (14.0-17.9); LYMPHOCYTES # (AUTO) 2.1 X10'3 (1.1-4.8); LYMPHOCYTES % (AUTO) 26.2 % (21-51); MEAN CORPUSCULAR HEMOGLOBIN 31.4 PG (27.0-31.0); MEAN CORPUSCULAR HGB CONC 34.7 g/dL (33.0-36.5); MEAN CORPUSCULAR VOLUME 90.5 FL (78-98); MEAN PLATELET VOLUME 6.9 FL (7.4-10.4); MONOCYTES # (AUTO) 0.6 X10'3 (0-0.9); MONOCYTES % (AUTO) 7.2 % (2-12); NEUTROPHILS # (AUTO) 5.2 X10'3 (1.8-7.7); NEUTROPHILS % (AUTO) 64.5 % (42-75); PLATELET COUNT 337 X10'3 (140-440); RED BLOOD COUNT 4.59 X10'6 (4.70-6.10); RED CELL DISTRIBUTION WIDTH 13.7 % (11.5-14.5); WHITE BLOOD COUNT 8.1 X10'3 (4.5-11.0)
[2022-05-12 21:08] LABS: URINE AMPHETAMINE SCREEN POSITIVE (Neg); URINE BARBITUATE SCREEN NEGATIVE (Neg); URINE BENZODIAZEPINES SCREEN NEGATIVE (Neg); URINE CANNABINOID SCREEN POSITIVE (Neg); URINE COCAINE SCREEN NEGATIVE (Neg); URINE METHADONE SCREEN NEGATIVE (Neg); URINE OPIATE SCREEN NEGATIVE (Neg); URINE PHENCYCLIDINE SCREEN NEGATIVE (Neg)
[2022-05-12 21:13] LABS: ALANINE AMINOTRANSFERASE 62 U/L (12-78); ALBUMIN 3.7 G/DL (3.4-5.0); ALBUMIN/GLOBULIN RATIO 0.8 (1.1-1.5); ALKALINE PHOSPHATASE 82 IU/L (46-116); ANION GAP 6 (8-16); ASPARTATE AMINO TRANSFERASE 39 U/L (10-37); BILIRUBIN,TOTAL 0.5 MG/DL (0.1-1.0); BLOOD UREA NITROGEN 11 MG/DL (7-18); BUN/CREATININE RATIO 12.6 (5.4-32.0); CHLORIDE 100 MMOL/L (99-107); CREATININE 0.87 MG/DL (0.60-1.10); GLUCOSE 108 MG/DL (70-104); SODIUM 134 MMOL/L (135-145); TOTAL CARBON DIOXIDE 27.9 MMOL/L (24-32); TOTAL PROTEIN 8.2 G/DL (6.4-8.2); eGFR > 90 ML/MIN
[2022-05-12 21:21] LABS: ETHANOL < 0.010 GM/DL (0.0-0.010)
--- NOTE | 2022-05-12 23:34 | NUR ---
PT LAYING IN BED READING WITHOUT DISTRESS
[2022-05-13] MEDS ORDERED: GABA-530 PO (00:14)
[2022-05-13] MEDS ORDERED: gabapentin 100mg capsule PO SCH ×2 (08:00→16:00)
--- NOTE | 2022-05-13 08:00 | NUR ---
Pt made a verbal contract that he will not harm himself while in our care.
[2022-05-13] MEDS: aripiprazole 5mg tablet PO SCH (08:46)
[2022-05-13] MEDS: ALPRAZolam 0.5mg tablet PO PRN ×2 (08:46→23:49)
--- NOTE | 2022-05-13 10:37 | NUR ---
PT LYING IN BED WITH EYES CLOSED, PT HAS NO NEEDS AT THIS TIME. WILL CONTINUE TO MONITER.
--- NOTE | 2022-05-13 11:45 | NUR ---
ASSISTED PT TO THE RESTROOM. GIVEN PT SANDWICH. PT HAS NO NEEDS AT THIS TIME. WILL CONTINUE TO MONITER.
[2022-05-13 14:49] LABS: CLARITY,URINE CLOUDY (Clear); COLOR,URINE YELLOW (Yellow); GLUCOSE, URINE NEGATIVE (Neg); KETONES,URINE NEGATIVE (Neg); LEUKOCYTE ESTERASE ,URINE NEGATIVE (Neg); NITRITES, URINE NEGATIVE (Neg); OCCULT BLOOD,URINE NEGATIVE (Neg); PROTEIN,URINE NEGATIVE (Neg); UROBILINOGEN,URINE 0.2 E.U/dL (0.2-1.0)
[2022-05-13 14:55] LABS: UA COLLECTION TYPE CLN CATCH MIDSTREAM
[2022-05-13 15:09] LABS: AMORPHOUS URATES 3+
[2022-05-13 15:15] LABS: BACTERIA,URINE NONE SEEN /HPF (Neg); CAL OXALATE CRYSTALS FEW /HPF (NEGATIVE); RBC,URINE NONE SEEN /HPF (0-2); SQUAMOUS EPITHELIAL CELL,UR NONE SEEN /LPF (FEW); WBC,URINE NONE SEEN /HPF (0-4)
[2022-05-13] MEDS ORDERED: gabapentin 400mg capsule PO SCH (16:00)
--- NOTE | 2022-05-13 19:30 | NUR ---
The patient has been sleeping. He ate two meals. He stated that he has not been sleeping prior to admit to the ER. He did have methamphetamine in his drug screen. He denies psychotic symptoms but does admit to SI. He replies were very limited.
[2022-05-13] MEDS: gabapentin 100mg capsule PO SCH (20:03)
--- NOTE | 2022-05-13 20:48 | NUR ---
The patient appears to be sleeping
[2022-05-13] MEDS ORDERED: traZODone 50mg tablet PO SCH (21:00)
--- NOTE | 2022-05-13 23:00 | NUR ---
The patient appears to be sleeping
--- NOTE | 2022-05-13 23:40 | NUR ---
Nurse to nurse with consulting technical director at [facility], [place]
--- NOTE | 2022-05-14 00:01 | NUR ---
Patient awake and complains of nightmares and increased anxiety. Requested and received prn Xanax
--- NOTE | 2022-05-14 00:37 | NUR ---
The patient was accepted at [facility], [place]
--- NOTE | 2022-05-14 01:15 | NUR ---
The patient appears to be sleeping
--- NOTE | 2022-05-14 02:11 | NUR ---
The patient appears to be sleeping
--- NOTE | 2022-05-14 03:31 | NUR ---
The patient appears to be sleeping
--- NOTE | 2022-05-14 05:05 | NUR ---
The patient appears to be sleeping
--- NOTE | 2022-05-14 06:30 | NUR ---
Pt moved back to overflow bed from ER main.
[2022-05-14] MEDS: gabapentin 100mg capsule PO SCH (08:02)
[2022-05-14] MEDS: aripiprazole 5mg tablet PO SCH (08:03)
[2022-05-14] MEDS: ALPRAZolam 0.5mg tablet PO PRN (08:04)
--- NOTE | 2022-05-14 08:14 | NUR ---
TAD office called to say pt was accepted at [facility] [place] by MARIA GUADALUPE Sauceda. 

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
--- NOTE | 2022-05-14 10:21 | NUR ---
Pt transferred to [facility], ambulated off the unit accompanied by [facility] taxi driver and security, all belongings sent with the taxi driver.
[2022-05-14 10:26] VITALS: BP 99/44
== END 2022-05-14 10:21 ==
LOC: ER 19:08
DX: F32.A Depression, unspecified (principal); Z20.822 Contact with and (suspected) exposure to COVID-19; R45.851 Suicidal ideations; G89.29 Other chronic pain; F41.9 Anxiety disorder, unspecified; F17.200 Nicotine dependence, unspecified, uncomplicated; F11.90 Opioid use, unspecified, uncomplicated; F19.90 Other psychoactive substance use, unspecified, uncomplicated; Z72.89 Other problems related to lifestyle; Z59.00 Homelessness unspecified; Z88.6 Allergy status to analgesic agent; Z88.1 Allergy status to other antibiotic agents; Z88.8 Allergy status to other drugs, medicaments and biological substances; Z79.2 Long term (current) use of antibiotics; Z79.899 Other long term (current) drug therapy
CPT/HCPCS: 36415; 80053; 80305; 80320; 81001; 85025; 87811; 93005; 99285

== ENCOUNTER 2022-12-31 16:11 | Emergency (ER) | payer MEDICAID ==
[~2022-12-31] VITALS: Ht 185.4 cm; Wt 95.5 kg
[~2022-12-31 16:11] MED LIST changes: -AMIT-189 PO; -ARIP15TA3 PO; -BUPR1FIL3 SL; -CLIN150C8 PO; -FLUV100C2 PO; +GABA-530 PO; -ONDA4TAB12 PO
[2022-12-31 16:35] VITALS: BP 105/59
[2022-12-31] MEDS ORDERED: ARIP5TAB14 PO (17:02)
[2022-12-31] MEDS ORDERED: GABA-530 PO (17:02)
[2022-12-31] MEDS ORDERED: TRAZ150T78 PO (17:02)
[2022-12-31] MEDS ORDERED: gabapentin 100mg capsule PO SCH (17:05)
[2022-12-31] MEDS ORDERED: traZODone 150mg tablet PO SCH (17:05)
[2022-12-31] MEDS ORDERED: ALPRAZolam 0.5mg tablet PO ONE (17:15)
[2022-12-31 17:44] LABS: GLUCOSE, URINE NEGATIVE (Neg); KETONES,URINE TRACE mg/dl (Neg); LEUKOCYTE ESTERASE ,URINE NEGATIVE (Neg); NITRITES, URINE NEGATIVE (Neg); OCCULT BLOOD,URINE NEGATIVE (Neg); PROTEIN,URINE 30 mg/dl (Neg)
[2022-12-31 17:49] LABS: UA COLLECTION TYPE CLN CATCH MIDSTREAM
[2022-12-31 17:50] LABS: CLARITY,URINE SLIGHTLY CLOUDY (Clear); COLOR,URINE AMBER (Yellow)
[2022-12-31 17:51] LABS: URINE AMPHETAMINE SCREEN POSITIVE (Neg); URINE BARBITUATE SCREEN NEGATIVE (Neg); URINE BENZODIAZEPINES SCREEN NEGATIVE (Neg); URINE CANNABINOID SCREEN POSITIVE (Neg); URINE COCAINE SCREEN NEGATIVE (Neg); URINE METHADONE SCREEN NEGATIVE (Neg); URINE OPIATE SCREEN NEGATIVE (Neg); URINE PHENCYCLIDINE SCREEN NEGATIVE (Neg)
[2022-12-31 17:58] LABS: BACTERIA,URINE 1+ /HPF (Neg); RBC,URINE 0-2 /HPF (0-2)
[2022-12-31 17:59] LABS: MUCUS STRANDS MODERATE /LPF (Neg); SQUAMOUS EPITHELIAL CELL,UR FEW /LPF (FEW)
[2023-01-01] MEDS ORDERED: aripiprazole 5mg tablet PO SCH (08:00)
== END 2022-12-31 17:50 | disposition home or self-care (01) ==
LOC: ER 16:12
DX: F32.9 Major depressive disorder, single episode, unspecified (principal); Z20.822 Contact with and (suspected) exposure to COVID-19; Z76.0 Encounter for issue of repeat prescription; G89.29 Other chronic pain; F41.9 Anxiety disorder, unspecified; F10.10 Alcohol abuse, uncomplicated; Z59.00 Homelessness unspecified; Z88.0 Allergy status to penicillin; Z88.6 Allergy status to analgesic agent; Z88.8 Allergy status to other drugs, medicaments and biological substances; Z79.899 Other long term (current) drug therapy; Y90.9 Presence of alcohol in blood, level not specified
CPT/HCPCS: 80305; 81001; 87811; 99283

== ENCOUNTER 2023-01-09 01:54 | Emergency (ER) | payer MEDICAID ==
[~2023-01-09] VITALS: Ht 185.4 cm; Wt 195.0 kg
[2023-01-09 02:12] VITALS: BP 116/67
== END 2023-01-09 04:53 | disposition home or self-care (01) ==
LOC: ER 01:54
DX: K08.89 Other specified disorders of teeth and supporting structures (principal); K02.9 Dental caries, unspecified; G89.29 Other chronic pain; Z21 Asymptomatic human immunodeficiency virus [HIV] infection status; Z72.89 Other problems related to lifestyle; Z59.00 Homelessness unspecified; Z88.8 Allergy status to other drugs, medicaments and biological substances; Z88.1 Allergy status to other antibiotic agents; Z79.899 Other long term (current) drug therapy
CPT/HCPCS: 99281; 99282

== ENCOUNTER 2023-01-10 19:34 | Emergency (ER) | payer MEDICAID ==
[~2023-01-10] VITALS: Ht 185.4 cm; Wt 88.6 kg
[2023-01-10 19:38] VITALS: BP 142/92
== END 2023-01-10 21:43 | disposition left against medical advice (07) ==
LOC: ER 19:35
DX: M79.674 Pain in right toe(s) (principal); Z53.21 Procedure and treatment not carried out due to patient leaving prior to being seen by health care provider
CPT/HCPCS: 99281

== ENCOUNTER 2023-03-02 16:50 | Inpatient (IN) | payer MEDICAID ==
[~2023-03-02] VITALS: Ht 185.4 cm; Wt 87.0 kg
[2023-03-02] MEDS ORDERED: loperamide 2mg capsule PO PRN (21:25)
[2023-03-02] MEDS ORDERED: magnesium hydroxide 30ml (MOM) UD suspension PO PRN (21:25)
[2023-03-02] MEDS ORDERED: acetaminophen 325mg tablet PO PRN ×2 (21:25)
[2023-03-02] MEDS ORDERED: mag hydrox/Alum hydrox/simeth 30ml oral suspension PO PRN (21:25)
[2023-03-02 21:31] VITALS: BP 114/75; PULSE 85; RESP 16; TEMP 97.4; O2SAT 100
[2023-03-02 21:49] VITALS: RESP 16; O2SAT 99
[2023-03-02] MEDS ORDERED: LORazepam 1 MG tablet PO PRN (22:00)
[2023-03-02] MEDS ORDERED: traZODone 50mg tablet PO ONE (22:15)
[2023-03-02] MEDS ORDERED: TRAZ-256 PO (22:50)
[2023-03-02] MEDS: traZODone 50mg tablet PO SCH (23:03)
[2023-03-02] MEDS ORDERED: OMEP20CA16 PO (23:08)
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
[2023-03-03 07:00] VITALS: BP 109/75; PULSE 82; RESP 14; TEMP 98.2; O2SAT 99
[2023-03-03] MEDS: pantoprazole 40mg Tablet.DR PO SCH (07:06)
[2023-03-03] MEDS: ARIPIPRAZOLE 10 MG TABLET PO SCH (07:07)
[2023-03-03] MEDS ORDERED: non-formulary drug (Omeprazole 1 CAP) PO SCH (08:00)
[2023-03-03] MEDS ORDERED: aripiprazole 5mg tablet PO SCH (08:00)
[2023-03-03 09:43] LABS: HEMOGLOBIN A1C 5.4 % (4.5-6.2)
[2023-03-03 09:45] LABS: CHOL/HDL RATIO 2.8 (0.00-4.99); CHOLESTEROL 113 MG/DL (0-200); HDL CHOLESTEROL 40 MG/DL (35-60); LDL CHOLESTEROL 57 MG/DL (50-100); TRIGLYCERIDES 75 MG/DL (20-135)
[2023-03-03] MEDS: ALPRAZolam 0.5mg tablet PO PRN (16:40)
--- NOTE | 2023-03-03 17:59 | NUR ---
NURSING PROGRESS NOTE: LEGAL HOLD: 5150 for DTS PROBLEM: Client reported suicidal ideation with a plan to walk in front of a train. Client waited by the train tracks for several hours when he was spotted by a person who transported him to [facility]. Hx; Depression, SI, and substance use. Interventions: Provided 1:1 assessment, therapeutic conversation, active listening, medication administration/education/monitoring, behavior monitoring and intervention as needed; attempted reality orientation, provided distraction, redirection, positive reinforcement, and Q15 min safety checks. Response: Received patient sleeping at change of shift. Patient awake, spending time with RN in the community room in the morning. Patient is concerned that he will not get his Ativan changed to Xanax, which is what he was taking in [place] for the last two months. Patient awaiting arrival of physician to make change. Patient came up to RN after change was made and stated that he had been doing some deep breathing exercises that Dr. Garvin said he needed to try before utilizing Xanax. Patient reports that the deep breathing exercises arent working and Xanax was given with good effect. PLAN: Medication stabilization.
[2023-03-03 19:00] VITALS: BP 109/57; PULSE 67; RESP 18; TEMP 98.1; O2SAT 100
[2023-03-03] MEDS: LIDOCAINE 5% OINTMENT 35GM TP SCH ×2 (20:00→20:51)
[2023-03-03] MEDS: traZODone 50mg tablet PO SCH (20:51)
[2023-03-03] MEDS: psyllium seed 5.8 gm packet (sugar-free) PO SCH (20:56)
[2023-03-03] MEDS ORDERED: traZODone 50mg tablet PO SCH (21:00)
[2023-03-03] MEDS ORDERED: non-formulary drug (Trazodone HCl 1 TAB) PO SCH (21:00)
[2023-03-04] MEDS: ALPRAZolam 0.5mg tablet PO PRN ×3 (00:27→17:08)
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
[2023-03-04 07:13] VITALS: RESP 14; O2SAT 99
[2023-03-04] MEDS: pantoprazole 40mg Tablet.DR PO SCH (07:29)
[2023-03-04] MEDS: ARIPIPRAZOLE 10 MG TABLET PO SCH (07:29)
[2023-03-04 08:00] VITALS: BP 129/77; PULSE 70; RESP 16; TEMP 98; O2SAT 99
[2023-03-04] MEDS: LIDOCAINE 5% OINTMENT 35GM TP SCH ×2 (08:00→20:00)
--- NOTE | 2023-03-04 17:27 | NUR ---
NURSING PROGRESS NOTE: LEGAL HOLD: 5150 for DTS PROBLEM: Client reported suicidal ideation with a plan to walk in front of a train. Client waited by the train tracks for several hours when he was spotted by a person who transported him to [facility]. Hx; Depression, SI, and substance use. Interventions: Provided 1:1 assessment, therapeutic conversation, active listening, medication administration/education/monitoring, behavior monitoring and intervention as needed; attempted reality orientation, provided distraction, redirection, positive reinforcement, and Q15 min safety checks. Response: Received patient sleeping at change of shift. He woke and came to the community room for breakfast. Patient was compliant with medications. He is friendly, pleasant and cooperative with staff. Patient still reports depression, but hes getting better. During 1:1 patient was asked if there is something going on that makes him depressed. He tried to explain, but it basically comes down to him missing his cousin that has HIV, or that he had a recent breakup with a partner. PLAN: Medication stabilization.
[2023-03-04] MEDS: traZODone 50mg tablet PO SCH ×2 (20:00→20:05)
[2023-03-04] MEDS: psyllium seed 5.8 gm packet (sugar-free) PO SCH (20:01)
[2023-03-04 20:51] VITALS: BP 107/72; PULSE 63; RESP 14; TEMP 98; O2SAT 99
--- NOTE | 2023-03-04 23:14 | NUR ---
NURSING PROGRESS NOTE: Vu LEGAL HOLD: 5150 for DTS PROBLEM: Client reported suicidal ideation with a plan to walk in front of a train. Client waited by the train tracks for several hours when he was spotted by a person who transported him to [facility]. Hx; Depression, SI, and substance use. Interventions: Provided 1:1 assessment, therapeutic conversation, active listening, medication administration/education/monitoring, behavior monitoring and intervention as needed; attempted reality orientation, provided distraction, redirection, positive reinforcement, and Q15 min safety checks. Response: Received patient resting in bed. PT calm and cooperative. Pt denies MH symptoms, pt questioned his Xanax order and said the Dr was going to change it. No new orders noted. Pt refused Trazadone and stated it makes him feel very groggy in the morning. Pt refused this RN to look at his foot (area of concern on medial aspect of right foot.) He stated it is fine. Pt up for snacks and is disheveled. PLAN: Medication stabilization.
[2023-03-05] MEDS: ALPRAZolam 0.5mg tablet PO PRN ×2 (00:43→08:54)
[2023-03-05 07:00] VITALS: RESP 14; O2SAT 100
[2023-03-05] MEDS: pantoprazole 40mg Tablet.DR PO SCH (07:55)
[2023-03-05 08:00] VITALS: BP 120/64; PULSE 80; RESP 14; O2SAT 100
[2023-03-05] MEDS: LIDOCAINE 5% OINTMENT 35GM TP SCH (08:00)
[2023-03-05 08:47] LABS: HBSAG SCREEN Negative (Negative); HEP B CORE AB, IGM Negative (Negative); HEP B CORE AB, TOT Negative (Negative)
[2023-03-05] MEDS: ARIPIPRAZOLE 10 MG TABLET PO SCH (08:54)
[2023-03-05] MEDS ORDERED: ALPR2TAB75 PO (11:06)
[2023-03-05] MEDS ORDERED: ARIP10TA15 PO (11:06)
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
--- NOTE | 2023-03-05 12:05 | NUR ---
DISCHARGE NOTE Patient discharged home, escorted off the unit with his belongings by this RN at 1205. Pt stated his plan is to walk to [facility] pharmacy and then home, which is a short walk away. Reviewed discharge instructions and follow up care with patient, and he verbalizes understanding. retirement administrator here to assess patient's foot; he will F/U with his PCP at [facility] on Wednesday03/08/23. Patient reports readiness for discharge. Denies S/I. Belongings returned to patient and discharge packet sent with patient.
== END 2023-03-05 12:09 | disposition home or self-care (01) | DRG 751 ==
LOC: ADULT MH 16:50
PROVIDERS: ADMIT Psychiatry & Neurology Psychiatry; ATTEND Psychiatry & Neurology Psychiatry
DX: F33.2 Major depressive disorder, recurrent severe without psychotic features (principal); F10.10 Alcohol abuse, uncomplicated; F15.10 Other stimulant abuse, uncomplicated; K21.9 Gastro-esophageal reflux disease without esophagitis; K60.2 Anal fissure, unspecified; K59.00 Constipation, unspecified; F17.210 Nicotine dependence, cigarettes, uncomplicated; M51.37 Other intervertebral disc degeneration, lumbosacral region; Z79.899 Other long term (current) drug therapy; Z91.51 Personal history of suicidal behavior; Z88.8 Allergy status to other drugs, medicaments and biological substances; Z88.5 Allergy status to narcotic agent; Z59.00 Homelessness unspecified
CPT/HCPCS: 36415; 80061; 83036; 86704; 86705; 87081; 87340

== ENCOUNTER 2023-03-10 02:41 | Emergency (ER) | payer MEDICAID ==
[~2023-03-10] VITALS: Ht 185.4 cm; Wt 75.2 kg
[~2023-03-10 02:41] MED LIST changes: -ALPR-624 PO; +ALPR2TAB75 PO; +ARIP10TA15 PO; -ARIP5TAB14 PO; -GABA-530 PO; -TRAZ150T78 PO
[2023-03-10 02:46] VITALS: BP 122/75; PULSE 99; RESP 16; TEMP 97; O2SAT 97
[2023-03-10] MEDS ORDERED: TERB30CR8 TP (03:37)
[2023-03-10] MEDS ORDERED: PHEN1SUP96 PR (03:37)
[2023-03-10] MEDS ORDERED: LIDO30CR TOP (03:37)
--- NOTE | 2023-03-10 09:16 | NUR ---
LATE ENTRY: AGREE WITH ALL [facility] COMPUTER METHODS ANALYST CHARTING
== END 2023-03-10 03:44 | disposition home or self-care (01) ==
LOC: ER 02:42
DX: R10.2 Pelvic and perineal pain (principal); G89.29 Other chronic pain; F41.9 Anxiety disorder, unspecified; F31.9 Bipolar disorder, unspecified; F10.10 Alcohol abuse, uncomplicated; F11.90 Opioid use, unspecified, uncomplicated; Z59.00 Homelessness unspecified; Z88.5 Allergy status to narcotic agent; Z88.6 Allergy status to analgesic agent; Z88.1 Allergy status to other antibiotic agents; Z79.899 Other long term (current) drug therapy; Y90.9 Presence of alcohol in blood, level not specified
CPT/HCPCS: 99283

== ENCOUNTER 2023-03-22 00:03 | Emergency (ER) | payer MEDICAID ==
[~2023-03-22] VITALS: Ht 185.4 cm; Wt 86.4 kg
[~2023-03-22 00:03] MED LIST changes: +LIDO30CR TOP; +PHEN1SUP96 PR; +TERB30CR8 TP
[2023-03-22 00:12] VITALS: TEMP 97.7
--- NOTE | 2023-03-22 00:22 | NUR ---
case #[id number]
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
[2023-03-22 04:46] VITALS: BP 104/69; PULSE 62; RESP 16; O2SAT 100
== END 2023-03-22 04:48 | disposition home or self-care (01) ==
LOC: ER 00:04
DX: S46.912A Strain of unspecified muscle, fascia and tendon at shoulder and upper arm level, left arm, initial encounter (principal); Y08.89XA Assault by other specified means, initial encounter; Y93.89 Activity, other specified; Y92.89 Other specified places as the place of occurrence of the external cause; Y99.8 Other external cause status
CPT/HCPCS: 70450; 72125; 73030; 99284